=== PATIENT | male | born 1965 | race Hispanic/Latino ===

== ENCOUNTER 2020-04-15 20:31 | Emergency (ER) | payer OTHER ==
--- NOTE | 2020-04-15 20:45 | EDPHYS ---
Physician Documentation [facility] Name: Ryan Malin Age: 55 yrs Sex: Male : 1965 Arrival Date: 04/15/2020 Time: 20:31 Bed 12 Private MD: ED Physician Srinath Clifford HPI: 04/15 20:43 This 55 yrs old Male presents to ER via Unassigned with complaints of Back Pain and jr8 fever. 20:43 The patient presents with pain that is acute, with no known mechanism of injury. The jr8 symptoms are located in the low back. Onset: The symptoms/episode began/occurred acutely, today. The pain does not radiate. Associated signs and symptoms: Pertinent positives: fever, headache. Modifying factors: The patient symptoms are alleviated by nothing, the patient symptoms are aggravated by nothing. Severity of symptoms: At their worst the symptoms were mild, in the emergency department the symptoms are unchanged. The patient has not experienced similar symptoms in the past. The patient has not recently seen a physician. ROS: 20:43 Eyes: Negative for injury, pain, redness, and discharge, ENT: Negative for injury, jr8 pain, and discharge, Neck: Negative for injury, pain, and swelling, Cardiovascular: Negative for chest pain, palpitations, and edema, Respiratory: Negative for shortness of breath, cough, wheezing, and pleuritic chest pain, Abdomen/GI: Negative for abdominal pain, nausea, vomiting, diarrhea, and constipation, MS/Extremity: Negative for injury and deformity, Skin: Negative for injury, rash, and discoloration. 20:43 Constitutional: Positive for fever, malaise. 20:43 Back: Positive for pain at rest, Negative for injury or acute deformity, decreased range of motion, pain with movement, radiated pain. 20:43 Neuro: Positive for headache. Exam: 20:43 Constitutional: This is a well developed, well nourished patient who is awake, alert, jr8 and in no acute distress. Eyes: Pupils equal round and reactive to light, extra-ocular motions intact. Lids and lashes normal. Conjunctiva and sclera are non-icteric and not injected. Cornea within normal limits. Periorbital areas with no swelling, redness, or edema. ENT: Nares patent. No nasal discharge, no septal abnormalities noted. Tympanic membranes are normal and external auditory canals are clear. Oropharynx with no redness, swelling, or masses, exudates, or evidence of obstruction, uvula midline. Mucous membranes moist. Neck: Trachea midline, no thyromegaly or masses palpated, and no cervical lymphadenopathy. Supple, full range of motion without nuchal rigidity, or vertebral point tenderness. No Meningismus. Cardiovascular: Regular rate and rhythm with a normal S1 and S2. No gallops, murmurs, or rubs. Normal PMI, no JVD. No pulse deficits. Respiratory: Lungs have equal breath sounds bilaterally, clear to auscultation and percussion. No rales, rhonchi or wheezes noted. No increased work of breathing, no retractions or nasal flaring. Abdomen/GI: Soft, non-tender, with normal bowel sounds. No distension or tympany. No guarding or rebound. No evidence of tenderness throughout. Back: No spinal tenderness. No costovertebral tenderness. Full range of motion. Skin: Warm, dry with normal turgor. Normal color with no rashes, no lesions, and no evidence of cellulitis. MS/ Extremity: Pulses equal, no cyanosis. Neurovascular intact. Full, normal range of motion. Neuro: Awake and alert, GCS 15, oriented to person, place, time, and situation. Cranial nerves II-XII grossly intact. Motor strength 5/5 in all extremities. Sensory grossly intact. Cerebellar exam normal. Normal gait. MDM: 20:41 Patient medically screened. [facility] 20:43 Data reviewed: vital signs, nurses notes, lab test result(s), and as a result, I will [facility] discharge patient. Data interpreted: Pulse oximetry: on room air is 100 %. Interpretation: normal. Counseling: I had a detailed discussion with the patient and/or guardian regarding: the historical points, exam findings, and any diagnostic results supporting the discharge/admit diagnosis, lab results, the need for outpatient follow up, a family practitioner, to return to the emergency department if symptoms worsen or persist or if there are any questions or concerns that arise at home. 04/15 20:42 Order name: Urine Dipstick-Ancillary (obtain specimen); Complete Time: 21:25 [facility] 04/15 20:42 Order name: Urine Microscopic Only; Complete Time: 22:41 [facility] 04/15 21:03 Order name: Urine Dipstick--Ancillary (enter results) mw2 04/15 21:20 Order name: Urine Dipstick-Ancillary; Complete Time: 22:41 EDMS Administered Medications: No medications were administered Disposition: 04/15/20 20:45 Discharged to Home. Impression: Fever, unspecified. - Condition is Stable. - Discharge Instructions: Fever, Adult, Urinary Tract Infection, Adult, COVID-19. - Medication Reconciliation Form, Thank You Letter, Antibiotic Education, Prescription Opioid Use form. - Follow up: Private Physician; When: As needed; Reason: Recheck today's complaints, Continuance of care, Re-evaluation by your physician. - Problem is new. - Symptoms have improved. Addendum: 04/17/2020 19:53 Co-signature as Attending Physician, Srinath Clifford MD I agree with the assessment and c pineda plan of care. Signatures: Dispatcher [employer] EDFL Kari Malloy RN RN dmSrinath Skelton MD MD cha Roszak, Josh, PA PA jr8 Corrections: (The following items were deleted from the chart) 04/15 21:25 20:45 04/15/2020 20:45 Discharged to Home. Impression: Fever, unspecified. Condition is dm5 Stable. Forms are Medication Reconciliation Form, Thank You Letter, Antibiotic Education, Prescription Opioid Use. Follow up: Private Physician; When: As needed; Reason: Recheck today's complaints, Continuance of care, Re-evaluation by your physician. Problem is new. Symptoms have improved. jr8
[2020-04-15 21:18] LABS: Urine Bacteria <20 /HPF (NONE SEEN)
[2020-04-15 21:20] LABS: Urine Blood 2+ (NEG); Urine Glucose NEGATIVE (NEG); Urine Protein NEGATIVE (NEG); Urine Specific Gravity 1.025 (1.005-1.030)
--- NOTE | 2020-04-15 21:25 | ER ---
Nurse's Notes [facility] Name: Ryan Malin Age: 55 yrs Sex: Male : 1965 Arrival Date: 04/15/2020 Time: 20:31 Bed 12 Private MD: Diagnosis: Fever, unspecified Presentation: 04/15 20:40 Acuity: SARAH 3 dm5 ED Course: 20:31 Patient arrived in ED. cl3 20:31 Donaldo Johns PA is PHCP. jr8 20:31 Srinath Clifford MD is Attending Physician. jr8 20:32 Srinath Clifford MD is Hospitalizing Provider. jr8 20:32 Srinath Clifford MD is Attending Physician. jr8 20:40 Kari Malloy, RN is Primary Nurse. dm5 21:24 Triage completed. dm5 Administered Medications: No medications were administered Outcome: 20:45 Discharge ordered by . jr8 21:25 Patient left the ED. dm5 Signatures: Kari Malloy, RN RN dm5 Donaldo Johns PA PA jr8 Christi Roblero cl3
[2020-04-15 21:51] LABS: SARS-COV-2 RT PCR NEGATIVE (NEGATIVE)
== END 2020-04-15 21:25 | disposition home or self-care (01) ==
LOC: ER 20:31
DX: R50.9 Fever, unspecified (principal); Z20.822 Contact with and (suspected) exposure to COVID-19
CPT/HCPCS: 87088; 87086; 0240U; 99281; 81003; 81015